=== PATIENT | male | born 1985 | race Hispanic/Latino ===

== ENCOUNTER 2016-04-13 17:00 | Emergency (ER) | payer OTHER ==
[~2016-04-13] VITALS: Ht 170.2 cm; Wt 113.4 kg
[~2016-04-13 17:00] MED LIST: NAPROSYN 500 M500 MG PO; PRILOSEC OTC20 MG PO; VISTARIL50 MG PO; ZOFRAN ODT4 MG PO
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
[2016-04-13] MEDS ORDERED: IBUPROFEN800 M1 PO (17:50)
[2016-04-13] MEDS ORDERED: CYCLOBENZAPRINE5 M2 PO (17:50)
[2016-04-13 17:55] VITALS: BP 140/79
== END 2016-04-13 17:56 ==
LOC: ERH 17:00
DX: S16.1XXA Strain of muscle, fascia and tendon at neck level, initial encounter (principal); V89.2XXA Person injured in unspecified motor-vehicle accident, traffic, initial encounter